=== PATIENT | male | born 1955 | race Caucasian/White ===

== ENCOUNTER 2018-02-28 06:10 | Day surgery (SDC) | payer BC ==
--- NOTE | 2018-02-14 20:55 | HP ---
CC: Dr. Joseph Capps * ADMISSION HISTORY AND PHYSICAL: DATE OF ADMISSION: 02/28/18 ATTENDING SURGEON: Dr. Pranay Maria.* (DICTATED BY EVANGELISTA BASSETT) CHIEF COMPLAINT: Left inguinal hernia. HISTORY OF PRESENT ILLNESS: This is a 62-year-old hypertensive male, who underwent laparoscopic repair of bilateral inguinal hernias with mesh about 12 years ago. He had an early recurrence on the right side, which appears to have been repaired from an open approach. There were no interval problems noted until about early December when he experienced some pain in the left groin and also noted accompanying swelling in the left groin. Since that time, he has had lfvwen-td-py discomfort but has had a bulge in the left groin that periodically requires manual reduction. He has not had any symptoms to suggest incarceration or strangulation. He otherwise denies any changes in GI or function. He was seen in the office by Dr. Maria on 01/25/18 at which time, he was noted to have a reducible left inguinal hernia. Recommendation was made for repair and I reviewed with the patient the expected perioperative course. He understands the indications, risks, benefits, and alternatives and would like to proceed as scheduled with open repair left inguinal hernia with mesh. PAST MEDICAL HISTORY: Hypertension, hyperlipidemia, ADHD, type 2 diabetes ( currently controlled with diet only), anxiety. PAST SURGICAL HISTORY: Hernia repairs as noted above, also excision of bilateral foot neuromas. CURRENT MEDICATIONS: 1. Meloxicam 15 mg once daily (he was prescribed over a year ago for some chest discomfort but was never told to stop it. I have indicated to him that he may stop it now but also may use it in the postoperative period). 2. Adderall 20 mg once daily as needed. 3. Ezetimibe 10 mg once daily. 4. Irbesartan 150 mg once daily. 5. Vascepa 1 g 2 tablets b.i.d. 6. He also takes additional fish oil supplement 1000 mg 4 tablets once daily. 7. Alprazolam (recently prescribed) 0.25 mg p.o. t.i.d. p.r.n. anxiety (has been using 1 or less per day). 8. Zolpidem 10 mg q.h.s. p.r.n. insomnia (does not use daily). 9. Hydrocodone/APAP 10/325 one tablet every 6 hours as needed (does not use daily). He also takes the following supplements: 1. Vitamin D3 1000 units. 2. Saw palmetto 1 tablet daily. 3. Magnesium 400 mg daily. 4. Vitamin B complex 1 tablet once daily. 5. Milk thistle 175 mg 2 tablets once daily. 6. Chromium 200 mcg once daily. 7. Turmeric 1 tablet once daily. 8. Glucosamine and chondroitin 1 tablet twice daily (he was instructed to hold his supplements for 3 days preoperatively). DRUG ALLERGIES: None known. FAMILY HISTORY: Negative for anesthesia problems, bleeding, or clotting disorder. SOCIAL HISTORY: The patient is . 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 He is a former smoker, who quit 25 years ago. He drinks on average 2 to 3 ounces of hard liquor per day. He has used recreational drugs in the past. More recently rare use of cocaine and infrequent use of marijuana. REVIEW OF SYSTEMS: General: No recent constitutional symptoms or acute illnesses. He has had weight loss of approximately 20 pounds in the past year related largely to dietary changes with subsequent improvement in his diabetes management. HEENT: No new or acute problems reported. He does have what appears to be a pterygium of the left eye which he referred to as a cholesterol deposit. Cardiovascular: No chest pain, palpitations, history of heart murmur. He is treated for hypertension. Respiratory: No asthma, chronic cough , or shortness of breath. Past history of smoking as noted. GI: No problems reported. Colonoscopy done approximately 2 years ago, normal report with recommended 10-year followup. : He has had microscopic hematuria and has been evaluated by Dr. Moreland with insignificant findings at the time of cystoscopy and negative biopsy. Endocrine: He has been treated for type 2 diabetes and recently was able to stop metformin, glimepiride, and Invokana. He continues to check fasting fingersticks which run between 100 and 150. He states that his last A1c was 5.9. No history of thyroid dysfunction. Musculoskeletal: No additions. Neuro/Psych: No additions. PHYSICAL EXAMINATION GENERAL: Well-nourished, mildly obese male in no acute distress. VITAL SIGNS: Height 5 feet 8 inches, weight 200 pounds. Temperature 98, blood pressure 130/72, pulse 72, respirations 18, BMI 30.4. HEENT: Pupils are equal, round, and reactive. EOMs intact. No conjunctival pallor. He does have a deposit on the nasal aspect of the left eye, possibly a pterygium. Oropharynx: Teeth in good repair. No intraoral lesions. NECK: No lymphadenopathy, thyromegaly, or masses. LUNGS: Clear to auscultation. No wheezes. HEART: Regular rate and rhythm. No murmur appreciated. ABDOMEN: He has diastasis. There is well-healed umbilical scar as well as right inguinal scar. Abdomen is soft, nontender to palpation and without palpable masses or organomegaly. Left inguinal hernia as per Dr. Maria's exam. GENITALIA: Not examined. BACK: No spinous process or CVA tenderness. EXTREMITIES: No edema. NEUROLOGICAL: Grossly intact. SKIN: Warm and dry. No suspicious rashes or lesions noted. IMPRESSION: Recurrent left inguinal hernia. PLAN: Open repair of left inguinal hernia with mesh. EVANGELISTA BASSETT [id number]/[facility] #: [id number] [facility]
[~2018-02-28 06:10] MED LIST: Buffered Lidocaine 0.9% SYRIN* 5 ML/SYR SYRINGE INTRADERM ONE
[2018-02-28] MEDS ORDERED: ceFAZolin 2 GM PREMIX in ORs 2 GM/50 ML BAG IVPB ONE (06:17)
[2018-02-28] MEDS ORDERED: Buffered Lidocaine 0.9% SYRIN* 5 ML/SYR SYRINGE ONE (06:17)
[2018-02-28] MEDS ORDERED: Morphine VIAL* 10 MG/ML 1 ML VIAL ONE (06:36)
[2018-02-28] MEDS ORDERED: Lidocain 1% EPI 1:100,000 * 30 ML MDV ONE (07:03)
[2018-02-28] MEDS ORDERED: Bupivacaine 0.5% SDV PF* 30ML VIAL ONE (07:03)
[2018-02-28] MEDS ORDERED: fentaNYL* 50 MCG/ML 2 ML VIAL (100 MCG VIAL) ONE ×3 (07:11→09:00)
[2018-02-28] MEDS ORDERED: Midazolam* 1 MG/ML 2 ML VIAL (2 MG) ONE (07:12)
[2018-02-28] MEDS ORDERED: Dexamethasone IV* 4 MG/ML 1 ML (4 MG) ONE (07:49)
[2018-02-28] MEDS ORDERED: Propofol* 10 MG/ML 20 ML BTL IV PUSH ONE (07:49)
[2018-02-28] MEDS ORDERED: Ketorolac INJ* 30 MG/ML 1 ML VIAL ONE (07:49)
[2018-02-28] MEDS ORDERED: Famotidine IV* 10 MG/ML 2 ML (20 mg) ONE (07:49)
[2018-02-28] MEDS ORDERED: Lidocaine 2% PF * 5 ML VIAL ONE (07:50)
[2018-02-28] MEDS ORDERED: Bupivacaine 0.25% W/EPI* 10 ML SDV ONE (07:54)
[2018-02-28] MEDS ORDERED: Naloxone* 0.4 MG/ML 1 ML VIAL IV PRN (07:55)
[2018-02-28] MEDS ORDERED: PROCHLORPERAZINE INJ 5 MG/ML 2 ML VIAL IV PRN (07:55)
[2018-02-28] MEDS ORDERED: fentaNYL* 50 MCG/ML 2 ML VIAL (100 MCG VIAL) IV PRN (07:55)
[2018-02-28] MEDS ORDERED: Levalbuterol 0.63MG/3ML NEB* UNIT OF USE INH PRN (07:55)
[2018-02-28] MEDS ORDERED: HYDROcodone/ACETAMIN 5-325 MG* 1 TAB PO PRN ×2 (07:55)
[2018-02-28] MEDS ORDERED: Ondansetron INJ* 2 MG/ML VIAL IV PRN (07:55)
[2018-02-28] MEDS ORDERED: Acetaminophen TAB* 325 MG PO PRN (07:55)
[2018-02-28] MEDS ORDERED: DiMENhydriNATE IV* 50 MG/ML VIAL IV PUSH PRN (07:55)
[2018-02-28] MEDS ORDERED: diPHENhydraMINE IV* 50 MG/ML 1 ml VIAL (BENADRYL) IV PRN (07:55)
--- NOTE | 2018-02-28 09:29 | BRIEFOPN ---
Brief Operative Note - Surgery Procedures: Procedures Pre-OP Diagnoses: Left inguinal hernia- recurrent Post-op Diagnosis: same Procedure: open Left inguinal hernia repair with mesh Surgeon: Candace Asst: Shoshana Anethesia: JANESSA Moreno EBL: minimal IVF: crystalloid Specimen: none Drains: none
[2018-02-28 10:16] VITALS: BP 133/74
[2018-02-28] MEDS ORDERED: HYDROcodone/ACETAMIN 5-325 MG* 1 TAB ONE (10:23)
--- NOTE | 2018-03-22 11:47 | OP ---
CC: Primary care doctor, Dr. Capps; [facility] * DATE OF OPERATION: 02/28/18 - [facility] DATE OF : 55 SURGEON: Pranay Maria MD. KNOCKER OUT: EVANGELISTA Ha ANESTHESIOLOGIST: Dr. Moreno. ANESTHESIA: General. PRE-OP DIAGNOSIS: Left inguinal hernia, recurrent. POST-OP DIAGNOSIS: Left inguinal hernia, recurrent. OPERATIVE PROCEDURE: Open left inguinal hernia repair with mesh. ESTIMATED BLOOD LOSS: Minimal. FLUIDS: Minimal crystalloid fluid given. SPECIMEN: None. DRAINS: None. DESCRIPTION OF PROCEDURE: The patient was taken to the operating room and placed in the operating table in supine position. Preoperative antibiotics were given. Sequential devices were placed on bilateral lower extremities. General anesthesia was induced. The patient's left groin was prepped and draped in standard surgical fashion. A time-out was performed. Injection of lidocaine along the proposed incision in the left groin was made. This was carried out through the subcutaneous tissues down through Joseph and Camper's fascia right down to the external oblique and the external oblique was cleaned off. This was incised along the direction of its fibers. Flaps were made both cephalad and caudad. The spermatic cord was then isolated around a Rudy drain. Next, we evaluated the anteromedial aspect of these cord structures and found an indirect hernia sac. This was dissected free from the cord structures. Once it was dissected free, we could see it was more of a direct hernia medially to the cord structures that may have passed the previous mesh placed during the laparoscopic hernia repair. At this point, we did skeletonize completely the spermatic structures. The hernia defect was then reduced and the decision was made to use a patch and plug. We placed a mesh plug through the area where the hernia sac exited and again it was not exactly clear if this was going along the internal ring versus an area medial to this. With the plug out, we sutured this to the adjacent transversalis fascia with the inferior aspect of the shelving edge of the inguinal ligament. Next, we utilized the patch and sutured this in a standard fashion starting at the pubic tubercle extending it along the shelving edge of the inguinal ligament and intermittent sutures superiorly. The tails of the mesh laterally were then brought together and sutured together to recreate the external ring. This laid under the external oblique aponeurosis laterally, which was then closed with a running 2- 0 Polysorb suture. We irrigated, hemostasis was achieved and incision was closed with 3-0 Vicryl sutures followed by 4-0 Monocryl subcuticular sutures. Steri-Strips and sterile dressing were applied. The patient tolerated the procedure well and was transferred to PACU in stable condition. [id number]/[facility] #: [id number] MTDD
== END 2018-02-28 10:32 | disposition home or self-care (01) ==
LOC: OR 06:10
PROVIDERS: ATTEND Surgery
DX: K40.91 Unilateral inguinal hernia, without obstruction or gangrene, recurrent (principal); Z87.891 Personal history of nicotine dependence; I10 Essential (primary) hypertension; E78.5 Hyperlipidemia, unspecified; E11.9 Type 2 diabetes mellitus without complications; F90.9 Attention-deficit hyperactivity disorder, unspecified type; F41.9 Anxiety disorder, unspecified; N40.0 Benign prostatic hyperplasia without lower urinary tract symptoms
CPT/HCPCS: 36415; 86703; 86803; C1781; J0690; J1100; J1885; J2250; J2270; J2704; J3010

== ENCOUNTER 2018-03-11 09:58 | Emergency (ER) | payer BC ==
--- OUTSIDE RECORDS SUMMARY | 2018-03-11 10:07 | XMS REPORT ---
:1955 External Reference #:[id number] Author Organization [employer] Address [address] [place] [address] [place] [address] Phone [phone] Care Team Providers Name Role Phone Joesph Capps MD Primary Care Physician Unavailable Payers Type Date Identification Numbers Payment Provider Subscriber Commercial Effective: Policy Number: BS Facets Suma Cooley 2012 [id number] PayID: [id number] [address] [address] [place] [address] Problems Date Description Provider Status Onset: 10/16/2013 Type II diabetes mellitus Armando Zavala M.D. 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 ETOH Use Currently consumes alcohol drinks martini Smoking Patient is a former smoker quit smoking 20 years ago Daily Caffeine Consumes on average 2 cups of regular coffee per day Exercise Type/Frequency Does not exercise Allergies, Adverse Reactions, Alerts Date Description Reaction Status Severity Comments 10/16/2013 Bee Sting Allergic asthma active hives Medications Medication Date Status Form Strength Qnty SIG Indications Ordering Provider Zolpidem Active Tablets 10mg 1 tablet Unknown Tartrate 000 po as needed Vitamin D3 Active Chewtabs 1000Unit 1 tab by Unknown 000 mouth daily Saw [place] Active 2 tabs Unknown 000 daily Meloxicam Active Tablets 15mg 1 by Unknown 000 mouth every day Alprazolam Active Tablets 0.25mg one by Unknown 000 Dispers mouth up to three times daily for anxiety as needed Adderall Active Tablets 20mg 1 tab by Unknown 000 mouth every day as needed Ezetimibe Active Tablets 10mg 1 by Unknown 000 mouth every day Hydrocodone-Ac Active Tablets 10-325mg 1 tab by Unknown etaminophen 000 mouth every 6 hours as needed Vascepa Active Capsules 1gm 2 tabs by Unknown 000 mouth twice a day Irbesartan Active Tablets 150mg 1 tab Niziol, 000 daily MD Joseph Fish Oil Active Capsules 1000mg 4 tabs by Unknown 000 mouth once a day Magnesium Active Tablets 400mg 1 by Unknown 000 mouth every day Vitamin Active Tablets 1 by Unknown B-Complex 000 mouth every day Milk Thistle Active Capsules 175mg 2 tabs Unknown 000 daily Chromium Active Tablets 200mcg daily Unknown 000 Turmeric Active Capsules take one Unknown 000 capsule/t ablet daily by mouth Glucosamine Active Capsules 1500Com 1 by Unknown Chondroitin 000 mouth 1500 Complex twice a day Metformin HCL Hx Tablets 500mg 1 tablet Unknown 000 po in the Am andPM Glimepiride Hx Tablets 4mg 1 tablet Unknown 000 po daily Am Hydrocodone-Ac Hx Tablets 5-325mg 1 tablet Unknown etaminophen 000 po as needed Januvia Hx Tablets 100mg 1 tablet Unknown 000 po daily Am Ibuprofen Hx Tablets 200mg 90tabs 4 tablet Unknown 000 po as needed Vitamin B Hx Tablets 2 by Unknown Complex 000 mouth every day Chromium Hx Tablets 500mcg 1 by Unknown Picolinate 000 mouth every day [place] III Hx Capsules 1000mg 90caps 4 by Unknown Epa+Dha 000 mouth every day Vitamin K Hx Tablets 100mcg 2 tabs po Unknown (Phytonadione) 000 daily Invokana Hx Tablets 300mg 1 by Unknown 000 mouth every day Medications Administered in Office Medication Date Status Form Strength Qnty SIG Indications Ordering Provider Technetium TC 06/11/2 Administered Injection Armando Dietz 99M 014 Inez Zavala Tetrofosmin, Per Unit Dose Up To 40 Millicuries Vital Signs Date Vital Result Comment 03/08/2018 Heart Rate 84 /min Respiratory Rate 18 /min Body Temperature 96.7 F 02/14/2018 Height 68 inches 5'8" Weight 200.00 lb Heart Rate 72 /min BP Systolic 130 mmHg BP Diastolic 72 mmHg Respiratory Rate 18 /min Body Temperature 98.0 F BMI (Body Mass Index) 30.4 kg/m2 01/25/2018 Height 68 inches 5'8" Weight 200.00 lb Heart Rate 84 /min BP Systolic Sitting 144 mmHg BP Diastolic Sitting 90 mmHg Respiratory Rate 18 /min Body Temperature 98.4 F BMI (Body Mass Index) 30.4 kg/m2 10/30/2013 Height 57.5 inches 4'9.50" Weight 220.00 lb Heart Rate 68 /min BP Systolic Sitting 132 mmHg Ra reg cuff BP Diastolic Sitting 96 mmHg Ra reg cuff BP Systolic Standing 130 mmHg Ra BP Diastolic Standing 86 mmHg Ra Respiratory Rate 18 /min BMI (Body Mass Index) 46.8 kg/m2 10/16/2013 Height 57.50 inches 4'9.50" Weight 219.00 lb without shoes Heart Rate 84 /min BP Systolic 144 mmHg Ra reg cuff BP Diastolic 92 mmHg Ra reg cuff BP Systolic Sitting 132 mmHg LA reg cuff BP Diastolic Sitting 90 mmHg LA reg cuff BP Systolic Standing 134 mmHg LA reg cuff BP Diastolic Standing 96 mmHg LA reg cuff Respiratory Rate 18 /min BMI (Body Mass Index) 46.6 kg/m2 Results Test Date Test Result H/L Range Note Laboratory test 02/28/2018 Point of Care 123 mg/dL High 70-100 1 finding Glucose Laboratory test 02/28/2018 HIV 1&2 AB Self Nonreactive Nonreactive 2 finding Referred Hepatitis C Ab - Self Ref Nonreactive Nonreactive 1 Tie Presser: [id number] It is recognized that currently available assays for the detection of antibodies to HIV-1 and/or HIV-2 may not detect all infected individuals. HIV antibodies may be undetectable in some stages of the infection and in some clinical conditions. The performance of this assay has not been established for populations of infants or children. Assayed by Chemiluminescence Microparticle Immunoassay on the Siemens Advia Centaur CP. Values obtained with different methods or kits cannot be used interchangeably.The diagnostic specificity of the ADVIA Centaur 1/O/2 Enhanced assay in the low risk population was 99.90% (6052/6058) with a 95% confidence interval of 99.78 to 99.96%. Procedures Date CPT Code Description Status 10/23/2013 96874 Stress Test Completed 10/23/2013 31136 Myocardial Perfusion Imaging Tomographic (Spect) Completed Multiple Studies 10/16/2013 51512 EKG Tracing & Interpretation Completed Encounters Type Date Location Provider CPT E/M Dx Office Visit 01/25/2018 [facility] [place] [address] K40.91 1:15p Manager Assessment Office Visit 10/30/2013 [facility] Armando Zavala, 43243 786.50 8:15a Manager Assessment M.DYifan 250.00 Office Visit 10/16/2013 11:45a [facility] Navya Zavala, 90683 786.50 [facility] M.DYifan 250.00 Plan of Care 03/08/2018 - Tyrone Anna, PAK40.91 Unilateral inguinal hernia, w/o obst or gangrene, recurrentFollow up:As needed
--- OUTSIDE RECORDS SUMMARY | 2018-03-11 10:07 | XMS REPORT ---
:1955 External Reference #:[id number] Author Organization [employer] Address [address] [place] [address] [place] [address] Phone [phone] Care Team Providers Name Role Phone Joseph Capps MD Primary Care Physician Unavailable Payers Type Date Identification Numbers Payment Provider Subscriber Commercial Effective: Policy Number: BS Facets Suma Cooley 2012 [id number] PayID: [id number] [address] [address] [place] [address] Problems Date Description Provider Status Onset: 10/16/2013 Type II diabetes mellitus Armando Zavala M.D. 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 Use Currently consumes alcohol drinks [...] tab by Unknown 000 mouth daily Saw [place] Active 2 tabs Unknown 000 daily Meloxicam [...] by Unknown Picolinate 000 mouth every day [place] III Hx Capsules 1000mg 90caps 4 by [...] Millicuries Vital Signs Date Vital Result Comment 02/14/2018 Height 68 inches 5'8" Weight 200.00 [...] BMI (Body Mass Index) 46.6 kg/m2 Results Description No Information Procedures Date CPT Code Description Status 10/23/2013 06771 Stress Test Completed 10/23/2013 53125 Myocardial Perfusion Imaging Tomographic (Spect) Completed Multiple Studies 10/16/2013 90176 EKG Tracing & Interpretation Completed Encounters Type Date Location Provider CPT E/M Dx Office Visit 01/25/2018 [facility] [place] [address] K40.91 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 Anna, PA at [facility]02/28/2018 7:30 am - EVANGELISTA Markham at [facility]02/28/2018 7:30 am - Pranay Maria MD at [facility]
[2018-03-11 10:16] VITALS: BP 140/87
--- NOTE | 2018-03-11 10:34 | UC ---
Bite Injury/Animal HPI - HPI Summary HPI Summary: noticed nonengorged tick this AM, did not notice last night. has had tick bites in past. he removed himself, tick intact. has tick during visit. - History of Current Complaint Chief Complaint: Melva Stated Complaint: TICK BITE Time Seen by Provider: 03/11/18 10:01 Hx Obtained From: Patient Severity Currently: None Severity Initially: Mild Pain Intensity: 0 Onset/Duration: Sudden Onset Type of Bite: Animal Has Animal Been Immunized?: N/A Character: Puncture Aggravating Factor(s): Nothing Alleviating Factor(s): Nothing Associated Signs And Symptoms: Positive: Negative Animal Available for Observation: Yes - Risk Factors Infection/Sepsis Risk Factors: Negative - Allergies/Home Medications Allergies/Adverse Reactions: Allergies Allergy/AdvReac Type Severity Reaction Status Date / Time BEE STINGS Allergy 40+ YEARS Uncoded 02/28/18 06:23 AGO, HIVES Home Medications: Home Medications Dandilion Extract 03/11/18 [History] PMH/Surg Hx/FS Hx/Imm Hx Previously Healthy: Yes Cardiovascular History: Hypertension - Surgical History Surgical History: Yes Surgery Procedure, Year, and Place: tonsillectomy and adenoidectomy as child. bilateral inguinal hernia [place] [facility] [place] repair as a baby - Family History Known Family History: Positive: Other - noncontributory - Social History Alcohol Use: Daily Alcohol Amount: reports 2 glasses wine and one glass scotch daily Substance Use Type: Cocaine, Marijuana Substance Use Comment - Amount & Last Used: reports cocaine last year, no marijuana recently Smoking Status (MU): Former Smoker Type: Cigarettes Amount Used/How Often: 3 ppd for 20 yrs Length of Time of Smoking/Using Tobacco: 20 YEARS Have You Smoked in the Last Year: No When Did the Patient Quit Smoking/Using Tobacco: 1992 Review of Systems Constitutional: Negative Skin: Other - bite on abd/tick, no rash Neurovascular: Negative Musculoskeletal: Negative All Other Systems Reviewed And Are Negative: Yes Physical Exam Triage Information Reviewed: Yes Appearance: Well-Appearing, Obese Vital Signs: Initial Vital Signs Temp 97.1 F 03/11/18 10:08 Pulse 74 03/11/18 10:08 Resp 16 03/11/18 10:08 BP 140/87 03/11/18 10:08 Pulse Ox 100 03/11/18 10:08 Vital Signs Reviewed: Yes Musculoskeletal Exam: Other - no elbow swelling or hand/joint swelling. Skin Exam: Other - on upper L quad of abd: small puncture tick bite w/ minimal erythema, nontender. no discharge. Bite Injury Course/Dx - Course Course Of Treatment: vitals good, pt. removed tick at home, tick not engorged, attached for <36hrs. offered antibx; pt. wanted prophylaxis tx. we reviewed cdc recommendations. - Differential Dx/Diagnosis Differential Diagnosis/HQI/PQRI: Cellulitis, Other Provider Diagnoses: tick bite Discharge - Sign-Out/Discharge Documenting (check all that apply): Patient Departure All imaging exams completed and their final reports reviewed: No Studies - Discharge Plan Condition: Good Disposition: HOME Prescriptions: Doxycycline Hyclate 100 mg PO ONCE #2 tablet. Patient Education Materials: Tick Bite (ED) Referrals: Joseph Capps MD [Primary Care Provider] - Additional Instructions: return if not improving or new symptoms - Billing Disposition and Condition Condition: GOOD Disposition: Home
== END 2018-03-11 10:43 | disposition home or self-care (01) ==
LOC: UCEAST 09:58
DX: S30.861A Insect bite (nonvenomous) of abdominal wall, initial encounter (principal); I10 Essential (primary) hypertension; Z91.030 Bee allergy status; Z87.891 Personal history of nicotine dependence; W57.XXXA Bitten or stung by nonvenomous insect and other nonvenomous arthropods, initial encounter; Y92.9 Unspecified place or not applicable
CPT/HCPCS: 99212; G0463

== ENCOUNTER 2018-11-20 15:31 | Emergency (ER) | payer BC ==
[2018-11-20] MEDS ORDERED: diPHENhydraMINE IV* 50 MG/ML 1 ml VIAL (BENADRYL) IV ONE (15:35)
[2018-11-20] MEDS ORDERED: NS 0.9% 1000 ML** 1,000 ML IV ONE (15:36)
[2018-11-20] MEDS ORDERED: methylPREDNISolone 125 MG* 2 ML VIAL IV ONE (15:36)
[2018-11-20] MEDS ORDERED: Famotidine IV* 10 MG/ML 2 ML (20 mg) IV SLOW PU ONE (15:36)
[2018-11-20 15:47] VITALS: BP 146/120
--- NOTE | 2018-11-20 16:09 | UC ---
Allergic Reaction HPI - HPI Summary HPI Summary: 63-year-old male comes in with allergic reaction to a bee sting. Just prior to arrival he was stung in the back of the neck by a wasp or bee. Started get hives around his neck head and arms. Denies any shortness of breath or difficulty swallowing. Years ago he had a severe allergic reaction and did undergo treatment to avoid further bad reactions. He's been stung a couple times on the legs by yellow jackets since that time and not had any problems. Is the first time he is having symptoms since the desensitization. - History of Current Complaint Chief Complaint: UCAllergicReaction Stated Complaint: WASP STING-ALLERGIC Time Seen by Provider: 11/20/18 15:33 Pain Intensity: 0 - Allergies/Home Medications Allergies/Adverse Reactions: Allergies Allergy/AdvReac Type Severity Reaction Status Date / Time BEE STINGS Allergy 40+ YEARS Uncoded 11/20/18 15:47 AGO, HIVES Home Medications: Home Medications Lutein Extract/Zeaxanthin Ext [Lutein] 1 cap PO QPM 11/20/18 [History Confirmed 11/20/18] Turmeric Root Extract [Turmeric Curcumin] 500 mg PO DAILY 11/20/18 [History Confirmed 11/20/18] PMH/Surg Hx/FS Hx/Imm Hx Previously Healthy: Yes Endocrine History: Dyslipidemia - Surgical History Surgical History: Yes Surgery Procedure, Year, and Place: tonsillectomy and adenoidectomy as child. bilateral inguinal hernia repair 2005 - [facility] [place]. umbilical hernia repair as a baby - Family History Known Family History: Positive: Other - noncontributory - Social History Alcohol Use: Daily Alcohol Amount: reports 2 glasses wine and one glass scotch daily Substance Use Type: Cocaine, Marijuana Substance Use Comment - Amount & Last Used: reports cocaine last year, no marijuana recently Smoking Status (MU): Former Smoker Type: Cigarettes Amount Used/How Often: 3 ppd for 20 yrs Length of Time of Smoking/Using Tobacco: 20 YEARS Have You Smoked in the Last Year: No When Did the Patient Quit Smoking/Using Tobacco: 1992 Review of Systems All Other Systems Reviewed And Are Negative: Yes Constitutional: Positive: Negative Skin: Positive: Other - see hpi Eyes: Positive: Negative ENT: Positive: Negative Respiratory: Positive: Negative Cardiovascular: Positive: Negative Gastrointestinal: Positive: Negative Motor: Positive: Negative Neurovascular: Positive: Negative Musculoskeletal: Positive: Negative Neurological: Positive: Negative Psychological: Positive: Negative Is Patient Immunocompromised?: No Physical Exam Triage Information Reviewed: Yes Appearance: Well-Appearing, No Pain Distress, Well-Nourished Vital Signs: Initial Vital Signs Temp 98.7 F 11/20/18 15:43 Pulse 102 11/20/18 15:43 Resp 18 11/20/18 15:43 BP 146/120 11/20/18 15:43 Pulse Ox 96 11/20/18 15:43 Vital Signs Reviewed: Yes Eye Exam: Normal Eyes: Positive: Conjunctiva Clear ENT: Positive: Pharynx normal - open Neck: Positive: Supple Respiratory: Positive: Lungs clear, Normal breath sounds, No respiratory distress Cardiovascular: Positive: RRR Musculoskeletal Exam: Normal Musculoskeletal: Positive: Strength Intact, ROM Intact Neurological Exam: Normal Neurological: Positive: Alert, Muscle Tone Normal Psychological Exam: Normal Psychological: Positive: Age Appropriate Behavior Skin: Positive: Other - Patient has some erythema on head and neck and hives on the upper arms. No other rash noted. Allergic Reaction Course/Dx - Course Course Of Treatment: Patient improved in clinic after receiving Benadryl 50 mg IV Pepcid 40 mg IV and Solu-Medrol 125 mg IV. The redness has gone down the rash is almost gone no difficulty swallowing or breathing. Plan as follows primary care doctor or the emergency department if worse. - Differential Dx/Diagnosis Provider Diagnosis: Allergic reaction to bee sting Discharge - Sign-Out/Discharge Documenting (check all that apply): Patient Departure All imaging exams completed and their final reports reviewed: No Studies - Discharge Plan Condition: Stable Disposition: HOME Prescriptions: Famotidine TAB* [Pepcid 20 MG TAB*] 20 mg PO BID PRN #10 tab PRN Reason: Allergy Symptoms predniSONE TAB* [Deltasone 20 MG TAB*] 40 mg PO DAILY PRN #8 tab PRN Reason: Allergy Symptoms Patient Education Materials: General Allergic Reaction (ED) Referrals: Joseph Capps MD [Primary Care Provider] - Additional Instructions: FOLLOW UP WITH YOUR DOCTOR IF NOT COMPLETELY IMPROVED. GET RECHECKED SOONER IF YOUR CONDITION WORSENS OR ANY QUESTIONS OR CONCERNS. TAKE BENADRYL 50MG EVERY 6 HOURS NEEDED. TAKE PEPCID 20MG TWICE A DAY NEEDED. TAKE THE PREDNISONE DIRECTED NEEDED. - Billing Disposition and Condition Condition: STABLE Disposition: Home
== END 2018-11-20 17:13 | disposition home or self-care (01) ==
LOC: UCEAST 15:31
DX: T63.441A Toxic effect of venom of bees, accidental (unintentional), initial encounter (principal); Z87.891 Personal history of nicotine dependence; Y92.9 Unspecified place or not applicable
CPT/HCPCS: 96360; 96374; 96375; 99212; G0463; J1200; J2930

== ENCOUNTER 2020-10-19 10:37 | Observation (INO) ==
[~2020-10-19 10:37] MED LIST changes: -Buffered Lidocaine 0.9% SYRIN* 5 ML/SYR SYRINGE INTRADERM ONE; +Buffered Lidocaine 1% SYRIN 1 ml INTRADERM ONE; +Lactated Ringers 1000 ml BAG 1,000 ML IV SCH; +Midazolam 2 mg/2 ml VIAL 1 mg/ml 2 ml VIAL (2 mg) ONE
[2020-10-19] MEDS ORDERED: ceFAZolin 2 GM PREMIX 2 GM/50 ML BAG ONE (10:53)
[2020-10-19] MEDS ORDERED: Propofol 0 MG/0 ML BTL ONE (10:53)
[2020-10-19] MEDS ORDERED: Bacitracin INJECTION 50,000 UNITS ONE (11:57)
[2020-10-19] MEDS ORDERED: ceFAZolin VIAL VIAL ONE (11:57)
[2020-10-19] MEDS ORDERED: Bupivacaine 0.5% SDV PF 30ML VIAL ONE (11:57)
[2020-10-19] MEDS ORDERED: Lidocaine 2% PF 5 ML VIAL ONE (12:13)
[2020-10-19] MEDS ORDERED: Rocuronium 50 mg VIAL 10 mg/ml 5 ml VIAL (50 mg) ONE ×2 (12:14→14:38)
[2020-10-19] MEDS ORDERED: Propofol 10 MG/ML 20 ML BTL ONE (12:14)
[2020-10-19] MEDS ORDERED: fentaNYL 250 mcg/5 ml 50 MCG/ML 5 ml VIAL (250 MCG) ONE (12:18)
[2020-10-19] MEDS ORDERED: Thrombin 5,000 UNITS 1 APPLIC KIT - topical use - TOPICAL ONE (12:30)
[2020-10-19] MEDS ORDERED: Gelfoam Sponge SIZE 100 SPONGE ONE (12:30)
[2020-10-19] MEDS ORDERED: EPHEDrine (Pressors) 50 MG/ML VIAL ONE (13:21)
[2020-10-19] MEDS ORDERED: DiMENhydriNATE IV 50 mg/ml 1 ml VIAL IV PUSH PRN (13:55)
[2020-10-19] MEDS ORDERED: fentaNYL 100 mcg/2 ml 50 MCG/ML VIAL IV PRN (13:55)
[2020-10-19] MEDS ORDERED: Naloxone 0.4 mg VIAL 0.4 mg/ml 1 ml VIAL IV PRN (13:55)
[2020-10-19] MEDS ORDERED: fentaNYL 100 mcg/2 ml 50 MCG/ML VIAL ONE ×2 (14:00→15:23)
[2020-10-19] MEDS ORDERED: HYDROmorphone 1 MG/1 ML SYRINGE ONE ×2 (14:27→16:16)
[2020-10-19] MEDS ORDERED: Acetaminophen IV 1 GM/100ML 100 ML ONE ×2 (14:36→16:39)
[2020-10-19] MEDS ORDERED: Bacitracin OINTMENT TUBE ONE (15:52)
[2020-10-19] MEDS ORDERED: Ondansetron 4 mg VIAL 2 MG/ML 2 ml VIAL IV PRN (16:13)
[2020-10-19] MEDS ORDERED: Polyethylene Glycol 3350 17 GM PACKET PO PRN (16:18)
[2020-10-19] MEDS ORDERED: Morphine 2 MG/ML SYRINGE IV PRN (16:18)
[2020-10-19] MEDS ORDERED: NS 0.9% 1000 ml BAG 1,000 ML IV SCH (16:30)
[2020-10-19] MEDS ORDERED: Amphetamine/Dextroam ER 10(NF) 10 mg CAP.ER PO PRN (16:33)
[2020-10-19] MEDS ORDERED: Dextrose 50% Syringe 50 ml 25 GM/50 ML SYRINGE IV PUSH PRN (16:37)
[2020-10-19] MEDS: Acetaminophen IV 1 GM/100ML 100 ML IVPB SCH (16:47)
[2020-10-19] MEDS: ceFAZolin 2 GM PREMIX 2 GM/50 ML BAG IVPB SCH (21:17)
[2020-10-19] MEDS: CHROMIUM PICOLINATE 400 MCG PO SCH (21:19)
[2020-10-19] MEDS: ICOSAPENT ETHYL 0.5 GM PO SCH (21:19)
[2020-10-19] MEDS: Magnesium Hydroxide LIQ 30 ML UDC PO SCH (21:19)
[2020-10-20] MEDS: Acetaminophen IV 1 GM/100ML 100 ML IVPB SCH (01:14)
[2020-10-20] MEDS: ceFAZolin 2 GM PREMIX 2 GM/50 ML BAG IVPB SCH (05:11)
[2020-10-20 07:58] VITALS: BP 143/68
[2020-10-20] MEDS ORDERED: Enoxaparin 40 MG/0.4 ML SYR SUBCUT SCH (09:00)
[2020-10-20] MEDS ORDERED: Cholecalciferol (VIT D3) 1,000 unit TAB PO SCH (09:00)
[2020-10-20] MEDS ORDERED: Acetaminophen IV 1 GM/100ML 100 ML IVPB SCH (09:00)
[2020-10-20] MEDS ORDERED: MAGNESIUM 30 MG PO SCH (09:00)
[2020-10-20] MEDS: ICOSAPENT ETHYL 0.5 GM PO SCH (09:51)
[2020-10-20] MEDS: CHROMIUM PICOLINATE 400 MCG PO SCH (09:51)
[2020-10-20] MEDS: Magnesium Hydroxide LIQ 30 ML UDC PO SCH (09:52)
[2020-10-22] MEDS ORDERED: SEMAGLUTIDE SUBCUT SCH (09:00)
[2020-10-22] MEDS ORDERED: INJECTOR SUBCUT SCH (09:00)
== END 2020-10-20 13:15 | disposition home or self-care (01) ==
LOC: OR 10:37 → SSU 10:37
PROVIDERS: ADMIT Neurological Surgery; ATTEND Neurological Surgery